=== PATIENT | male | born 1990 | race Caucasian/White ===

== ENCOUNTER 2016-12-03 23:15 | Emergency (ER) | payer SELFPAY ==
[~2016-12-03] VITALS: Ht 185.4 cm; Wt 84.0 kg
[2016-12-03 23:48] LABS: EOSINOPHIL (%) 0.6 % (0-5); EOSINOPHIL COUNT 0.1 K/uL (0-0.3); HEMATOCRIT 39.4 % (38.0-50.0); IMMATURE GRANULOCYTE (%) 0.1 % (0.0-0.7); IMMATURE GRANULOCYTE COUNT 0.1 K/uL; LYMPHOCYTE COUNT 2.2 K/uL (1.0-2.8); MCH 31.9 PG (29.0-34.0); MCV 93.8 FL (86-99); MEAN PLAT.VOLUME 10.7 uM^3 (9.0-12.4); MONOCYTE (%) 8.2 % (3-12); MONOCYTE COUNT 0.7 K/uL (0-0.8); NEUTROPHIL COUNT 5.8 K/uL (1.8-6.4); PLATELET COUNT 183 K/uL (156-360); RBC DIS.WIDTH-CV 13.7 % (11.8-14.6); RBC DIS.WIDTH-SD 45.2 % (39-53); WHITE BLOOD COUNT 8.8 K/uL (4.1-10.2)
[2016-12-04 00:06] LABS: CHLORIDE 102 mEq/L (99-109); SODIUM 140 mEq/L (136-147)
[2016-12-04 00:08] LABS: GLUCOSE 95 mg/dL (70-99)
[2016-12-04 00:09] LABS: ANION GAP 8 MEQ/L (2-14)
[2016-12-04 00:10] LABS: TOTAL BILIRUBIN 1.3 mg/dL (0.0-1.0)
[2016-12-04 00:11] LABS: SERUM ETHYL ALCOHOL < 10 mg/dL
[2016-12-04 00:12] LABS: ALKALINE PHOSPHATASE 86 IU/L (3-129); GFR ESTIMATE (CALCULATED) > 59 mL/min/
[2016-12-04 00:14] LABS: UREA NITROGEN (BUN) 19 mg/dL (9-23)
[2016-12-04 00:15] LABS: SALICYLATE < 5.0 MG/DL (15-30)
[2016-12-04] MEDS ORDERED: NARCAN4 MG NS (01:15)
[2016-12-04 01:43] VITALS: BP 113/66
== END 2016-12-04 02:01 | disposition home or self-care (01) ==
LOC: EME → EDBD 23:15 → EME 12-04 02:01
PROVIDERS: Emergency Medicine
DX: T40.1X1A Poisoning by heroin, accidental (unintentional), initial encounter (principal); F11.10 Opioid abuse, uncomplicated; Z72.0 Tobacco use
CPT/HCPCS: 80053; 81003; 85025; 99281; 99285; G0480; J2310; J2405; J7030

== ENCOUNTER 2017-07-25 00:29 | Emergency (ER) | payer SELFPAY ==
[~2017-07-25] VITALS: Ht 185.4 cm; Wt 90.3 kg
[~2017-07-25 00:29] MED LIST: NARCAN4 MG NS
[2017-07-25] MEDS ORDERED: NARCAN4 MG NS (01:31)
[2017-07-25 02:51] VITALS: BP 138/76
== END 2017-07-25 02:51 | disposition home or self-care (01) ==
LOC: EME 00:29
DX: T40.1X1A Poisoning by heroin, accidental (unintentional), initial encounter (principal); Z87.891 Personal history of nicotine dependence
CPT/HCPCS: 99281; 99284; J2310

== ENCOUNTER 2017-11-19 10:14 | Observation (INO) | payer OTHER ==
[~2017-11-19] VITALS: Ht 185.4 cm; Wt 67.2 kg
[2017-11-19 12:57] LABS: HEMATOCRIT 40.2 % (38.0-50.0); HEMOGLOBIN 14.1 G/DL (12.5-16.6); MCH 33.3 PG (29.0-34.0); MCHC 35.1 G/DL (30.0-36.0); PLATELET COUNT 156 K/uL (156-360); RBC DIS.WIDTH-CV 12.3 % (11.8-14.6); RBC DIS.WIDTH-SD 43.4 % (39-53); RED BLOOD COUNT 4.23 M/uL (4.00-5.50)
[2017-11-19 13:05] LABS: ALBUMIN 4.3 g/dL (3.2-4.8); CHLORIDE 103 mEq/L (99-109); POTASSIUM 4.2 mEq/L (3.7-5.4); SODIUM 139 mEq/L (136-147)
[2017-11-19 13:08] LABS: GLUCOSE 86 mg/dL (70-99); TOTAL PROTEIN 7.7 g/dL (6.4-8.3)
[2017-11-19 13:09] LABS: TOTAL BILIRUBIN 0.8 mg/dL (0.0-1.0)
[2017-11-19 13:11] LABS: ALKALINE PHOSPHATASE 59 IU/L (3-129); CREATININE 0.9 mg/dL (0.6-1.3); GFR ESTIMATE (CALCULATED) > 59 mL/min/ (58.99-99999)
[2017-11-19 13:12] LABS: UREA NITROGEN (BUN) 21 mg/dL (9-23)
[2017-11-19 13:13] LABS: AST (GOT) 88 IU/L (2-34)
[2017-11-19 13:14] LABS: ALT (GPT) 261 IU/L (3-49)
[2017-11-19 13:47] LABS: TROP-I INTERPRETATION NEGATIVE; TROPONIN-I 0.02 ng/mL (0.0-0.30)
[2017-11-19 14:49] LABS: APPEARANCE CLEAR ((CLEAR)); BILIRUBIN NEGATIVE; BLOOD NEGATIVE; COLOR YELLOW ((YELLOW)); GLUCOSE (STRIP) NEGATIVE; KETONES 20; LEUKOCYTES NEGATIVE; NITRITE NEGATIVE; PROTEIN (STRIP) 30; SPECIFIC GRAVITY 1.024 (1.000-1.030); UCUL ADDED? NO; UROBILINOGEN 0.2 MG/DL (0.2-1.0)
[2017-11-19 15:03] LABS: AMPHETAMINE NEGATIVE (500 ng/mL); BARBITURATES NEGATIVE (200 ng/mL); BENZODIAZEPINES NEGATIVE (150 ng/mL); BUPRENORPHINE NEGATIVE (10 ng/mL); COCAINE NEGATIVE (150 ng/mL); METHADONE NEGATIVE (200 ng/mL); METHAMPHETAMINE NEGATIVE (500 ng/mL); OPIATES (MORPHINE) NEGATIVE (100 ng/mL); OXYCODONE PRESUMPTIVE POSITIVE (100 ng/mL); PHENCYCLIDINE NEGATIVE (25 ng/mL); PROPOXYPHENE NEGATIVE (300 ng/mL); THC CANNABINOIDS PRESUMPTIVE POSITIVE (50 ng/mL); TRICYCLIC ANTIDEPRESSANTS NEGATIVE (300 ng/mL)
[2017-11-19 15:44] VITALS: BP 123/61
[2017-11-19 16:27] LABS: TROP-I INTERPRETATION NEGATIVE; TROPONIN-I 0.02 ng/mL (0.0-0.30)
[2017-11-19 19:05] VITALS: BP 113/53
[2017-11-19 22:18] LABS: TROP-I INTERPRETATION NEGATIVE; TROPONIN-I 0.03 ng/mL (0.0-0.30)
[2017-11-19 23:38] VITALS: BP 107/55
[2017-11-20 03:42] VITALS: BP 127/74
[2017-11-20 06:15] LABS: HEMATOCRIT 42.9 % (38.0-50.0); HEMOGLOBIN 14.6 G/DL (12.5-16.6); MCH 32.7 PG (29.0-34.0); MCV 96.2 FL (86-99); PLATELET COUNT 148 K/uL (156-360); RBC DIS.WIDTH-CV 12.8 % (11.8-14.6); RBC DIS.WIDTH-SD 45.7 % (39-53); RED BLOOD COUNT 4.46 M/uL (4.00-5.50); WHITE BLOOD COUNT 6.8 K/uL (4.1-10.2)
[2017-11-20 06:44] LABS: ALBUMIN 4.1 G/DL (3.2-4.8); ALKALINE PHOSPHATASE 51 IU/L (3-129); ALT (GPT) 194 IU/L (3-49); AST (GOT) 73 IU/L (2-34); CHLORIDE 105 MEQ/L (99-109); CREATININE 0.9 MG/DL (0.6-1.3); GFR ESTIMATE (CALCULATED) > 59 mL/min/ (58.99-99999); GLUCOSE 88 mg/dL (70-99); POTASSIUM 4.1 MEQ/L (3.7-5.4); SODIUM 138 MEQ/L (136-147); TOTAL BILIRUBIN 0.9 MG/DL (0.0-1.0); TOTAL PROTEIN 7.2 G/DL (6.4-8.3); UREA NITROGEN (BUN) 16 mg/dL (9-23)
[2017-11-20 08:15] VITALS: BP 152/65
[2017-11-20 11:12] VITALS: BP 115/63
[2017-11-20 11:27] LABS: HEPATITIS B SURFACE ANTIGEN Nonreactive
[2017-11-20 11:28] LABS: ANTI-HEPATITIS A VIRUS (IGM) Nonreactive
[2017-11-20 11:29] LABS: ANTI-HEPATITIS B CORE (IGM) Nonreactive
[2017-11-20 11:30] LABS: HEPATITIS C ANTIBODY REACTIVE
== END 2017-11-20 15:33 | disposition home or self-care (01) ==
LOC: EME 10:14 → EDOF 14:37 → 5WEST 14:37 → EDOF 14:37 → ENRESERV 14:43 → 5WEST 15:29
PROVIDERS: Hospitalist; Nurse Practitioner Family
DX: T40.1X1A Poisoning by heroin, accidental (unintentional), initial encounter (principal); Z86.74 Personal history of sudden cardiac arrest; R74.0 Nonspecific elevation of levels of transaminase and lactic acid dehydrogenase [LDH]; B19.20 Unspecified viral hepatitis C without hepatic coma
CPT/HCPCS: 71046; 76705; 80053; 80074; 81003; 84484; 84999; 85027; 87522 90; 93005; 93306; 99281; 99285; G0378; J2405; J7030